=== PATIENT | male | born 1975 | race Caucasian/White ===

== ENCOUNTER → 2019-08-17 | Outpatient (CLI) | payer OTHER | END | disposition home or self-care (01) | LOC: RAD 12:39 | DX: R09.81 Nasal congestion (principal) ==

== ENCOUNTER 2020-05-28 23:12 | Emergency (ER) | payer OTHER ==
[~2020-05-28] VITALS: Ht 193 cm; Wt 93.0 kg
[2020-05-29] MEDS ORDERED: KETO10TA2 PO (01:06)
== END 2020-05-29 01:16 | disposition home or self-care (01) ==
LOC: ER 23:12
DX: G89.11 Acute pain due to trauma (principal); R07.89 Other chest pain

== ENCOUNTER 2023-09-12 13:59 | Outpatient (CLI) | payer OTHER ==
[~2023-09-12 13:59] MED LIST: KETO10TA2 PO
== END 2023-09-12 14:07 | disposition home or self-care (01) ==
LOC: SONOGRAMA 13:59
PROVIDERS: ATTEND Physical Medicine & Rehabilitation
DX: M75.82 Other shoulder lesions, left shoulder (principal); M54.50 Low back pain, unspecified